=== PATIENT | male | born 1975 | race Hispanic/Latino ===

== ENCOUNTER 2016-10-22 14:23 | Emergency (ER) | payer OTHER ==
[~2016-10-22] VITALS: Ht 170.2 cm; Wt 117.0 kg
[2016-10-22 14:27] VITALS: BP 161/91; PULSE 67; RESP 16; O2SAT 98
[2016-10-22 14:37] VITALS: BP 158/83; PULSE 59; RESP 15; O2SAT 100
[2016-10-22 14:59] LABS: BASOPHILS % (AUTO) 0.1 % (0-3); EOSINOPHILS % (AUTO) 2.1 % (0-5); MONOCYTES % (AUTO) 8.5 % (4-12); NEUTROPHILS % (AUTO) 72.7 % (40-74); Platelet Count 186 bil/L (150-400)
--- NOTE | 2016-10-22 15:00 | ED.REPORT ---
HPI-General Illness Date of Service Oct 22, 2016 ED Provider: Dr. Rafy Santana The patient is a 41 year old male w/ a hx of HTN who presents to the ED due to an episode of sudden-onset, 9/10, mid-chest pain radiating upwards into the top part of his chest, onset yesterday at 1900. Pt describes the pain as "squeezing." The episode lasted 10-15 minutes and occurred while he was at work moving around. The pain resolved on its own with some deep breathing and relaxation; he finished his shift and returned home. Pt had another episode at 0200 this morning. He went outside to get some fresh air, drank some water, the pain abated and he went to bed. Doesn't seem to be worse w/ exertion. Pt is asymptomatic at the ED and has not had any pain today. He denies nausea, vomiting, abdominal pain, blood in stool, hematuria, diarrhea, or shortness of breath. Pt was sent to the ED today from due to elevated blood pressure. His father had a heart attack in his late 30's or 40's. Pt had 4 baby aspirin [employer]. Nursing Notes Stated Complaint: CHEST PAIN/ SENT FROM URGENT CARE Chief Complaint: Chest Pain Nursing Notes Reviewed: Yes Allergies: Coded Allergies: No Known Allergies (Unverified , 10/22/16) No Active Prescriptions or Reported Meds General Time Seen by MD: 14:59 Chief Complaint Chest pain Hx Obtained From: Patient Arrived By: Walk-in Sudden in Onset?: Yes Onset Occurred: Yesterday Symptom Duration: Since onset Location: : Chest Quality: Painful Severity: Current: Pain level 9 out of 10 Recent Healthcare: No recent doctor visit, No recent hospitalization Similar Sx Previous: No Past Medical History Past Medical History Reports: Hypertension Past Surgical History denies Family History Father from [place] in his late 30's Smoking History Current Every Day Smoker Social History Alcohol Use: Denies alcohol use Drug Use: THC Other Social History: Good social support, Lives in [facility] Ambulatory Status Independent Review of Systems Full Review of Systems Respiratory: Denies: Shortness of breath Cardiovascular: Reports: Chest pain GI: Denies: Abdominal pain, Bloody/tarry stool, Diarrhea, Hematochezia, Nausea , Vomiting Male: Denies Hematuria Complete sys rev & neg: except as marked. Physical Exam Nursing note and vitals reviewed. Constitutional: Well-developed, well-nourished. Not diaphoretic. Head: Normocephalic and atraumatic. Mouth/Throat: Oropharynx is clear and moist. No oropharyngeal exudate. Eyes: EOM are normal. Pupils are equal, round, and reactive to light. Neck: Supple, no tracheal deviation. Cardiovascular: Normal rate, regular rhythm. Equal and intact distal pulses throughout. Reproducible chest pain on exam. Pulmonary/Chest: Effort normal and breath sounds normal. No respiratory distress. Abdominal: Soft. No distension. Musculoskeletal: Range of motion grossly intact, moving all extremities. No peripheral edema or tenderness appreciated. Neurological: AOx3. Grossly nonfocal exam. Strength and sensation intact and equal to bilateral upper and lower extremities. Skin: Warm and dry, no rashes or pallor appreciated. Psychiatric: Appropriate mood and affect. Behavior appears normal. Vital Signs Vital Signs Date Time Temp Pulse Resp B/P Pulse Ox O2 Delivery O2 Flow Rate FiO2 10/22/16 16:50 37.0 54 16 147/87 97 Room Air 10/22/16 16:17 54 16 147/87 97 Room Air 10/22/16 14:37 59 15 158/83 100 Room Air 10/22/16 14:27 37.0 67 16 161/91 98 Room Air Initial VS: Reviewed Interpretation & Diagnostics Lab Results Interpretation Result Diagram: 10/22/16 1451 10/22/16 1451 Test 10/22/16 14:51 White Blood Count 14.5th/mm3 (3.8-10.1) Red Blood Count 5.31mil/mm3 (4.40-5.80) Hemoglobin 15.4g/dL (13.8-17.2) Hematocrit 46.2% (41.0-50.0) Mean Corpuscular Volume 87.0fL (81-100) Mean Corpuscular Hemoglobin 29.0pg (27.0-35.0) Mean Corpuscular Hemoglobin Concent 33.3% (32.0-37.0) Red Cell Distribution Width 13.5% (12.3-15.4) Platelet Count 186bil/L (150-400) Neutrophils (%) (Auto) 72.7% (40-74) Lymphocytes (%) (Auto) 16.4% (14-46) Monocytes (%) (Auto) 8.5% (4-12) Eosinophils (%) (Auto) 2.1% (0-5) Basophils (%) (Auto) 0.1% (0-3) Sodium Level 140mEq/L (134-144) Potassium Level 4.3mEq/L (3.5-5.2) Chloride Level 103mEq/L (97-108) Carbon Dioxide Level 24mmol/L (18-29) Blood Urea Nitrogen 16mg/dL (6-24) Creatinine 0.80mg/dL (0.76-1.27) Estimat Glomerular Filtration Rate 113mL/min (>59) Glucose Level 91mg/dL (60-99) Calcium Level 9.2mg/dL (8.5-10.1) Magnesium Level 2.2mg/dL (1.6-2.6) Total Bilirubin 0.4mg/dL (0.0-1.2) Aspartate Amino Transf (AST/SGOT) 15U/L (0-50) Alanine Aminotransferase (ALT/SGPT) 19U/L (0-44) Alkaline Phosphatase 86U/L (25-150) Troponin T < 0.010ug/L (0.0-0.011) Total Protein 6.9g/dL (6.4-8.4) Albumin 4.2g/dL (3.4-5.0) Hold Lucio Top Tube Received (Received) ECG Interpretation ECG Interpretation: 1 PVC Time: 14:44 Interpreted by: ED physician Normal ECG Interpretation: Normal sinus rhythm (rate 54), No acute ischemic changes X-Ray Chest Interpretation Chest Xray Interpretation: IMPRESSION: 1. No acute cardiopulmonary disease. Dictated by: Joselo Dominguez M.D. on 10/22/2016 at 15:15 Approved by: Joselo Dominguez M.D. on 10/22/2016 at 15:17 View: Portable Interpretation / Wet Read by: Interpret - Radiologist Re-Eval/Medical Decision Med Decision/Clinical Course In summary, 41-year-old male presenting to the ED for evaluation of chest pain since yesterday. Upon arrival here, the pain is completely resolved. He came over from urgent care because his blood pressure was elevated, however here in the ED, with no intervention, it has improved significantly with SBPs only in the 140s. Patient's EKG demonstrates sinus rhythm with one PVC, no acute ischemic changes. Troponin negative and last pain was greater than 12 hours ago. HEART score of 2. PERC negative. No symptoms that would suggest aortic dissection; no widened mediastinum, no chest pain tearing to the back, no pain at this time whatsoever. No evidence of pneumothorax on chest x-ray or exam. Afebrile, no recent illnesses; doubt myocarditis/pericarditis. He does have a mildly elevated white blood cell count, however no recent fevers, x-ray with no signs of pneumonia. Given the above, reasonable to discharge home with very careful return precautions, PCP follow-up in the next 1-2 days. Patient agreeable to the plan as stated, no further questions. I spent 10 minutes counseling the patient on smoking cessation. Time of Eval: 16:04 Re-Evaluation/Progress Note: Pt checked. Physical exam performed. Informed pt of normal chest x-ray and unremarkable labs. Discussed plan of treatment and follow up with primary care physician. Pt understands and agrees with plan. Counseled Regarding: Diagnosis, Lab results, Need for follow-up, When/why to return to ED Discharge & Departure Primary Impression: Chest pain Chest pain type: unspecified Qualified Code: R07.9 - Chest pain, unspecified Disposition: Home Discharge Condition All VS Reviewed: Yes Condition: Stable Patient Instructions: Chest Pain (ED) Additional Instructions: Thank you for entrusting us with your care today. Your chest x-ray and labs do not show any acute abnormalities. It is possible your symptoms were due to a nonemergent cause; however, with your history, it is important for you to follow up with a primary care physician in the next several days to discuss getting a stress test performed. Also, talk to your doctor about strategies for quitting smoking, this is extremely detrimental to your health. Return to the Emergency Department if you experience any new or worsening symptoms including increased chest pain, shortness of breath, or difficulty breathing, or if there's anything else of concern to you. Referrals: [facility] Lay Attestation Portion of this note were transcribed by Dinora Burr. I, Dr. Santana, personally performed the history, physical exam, and medical decision-making: I reviewed and confirmed the accuracy for the information in the transcribed note. Signed by: lya Lin, 10/22/16 1800 copies to: [facility] Rafy Santana MD Oct 22, 2016 15:00 Dinora Burr Oct 22, 2016 15:08 reviewed and confirmed the accuracy for the information in the transcribed note. Signed by: lay Lin, 10/22/16 1800 copies to: [facility] Rafy Santana MD Oct 22, 2016 15:00 Dinora Burr Oct 22, 2016 15:08 chest pain, shortness of breath, or difficulty breathing. Referrals: [facility] Lay Attestation Portion of this note were transcribed by Dinora Burr. I, Dr. Santana, personally performed the history, physical exam, and medical decision-making: I reviewed and confirmed the accuracy for the information in the transcribed note. Signed by: lay Lin, 10/22/16 1800 copies to: [facility] Rafy Alvarado MD Oct 22, 2016 15:00 Dinora Burr Oct 22, 2016 15:08
--- NOTE | 2016-10-22 15:19 | DRSVH ---
PROCEDURE: X-RAY CHEST ONE VIEW, PORTABLE ([id number]) INDICATIONS: Chest pain TECHNIQUE: One view of the chest was acquired. COMPARISON: [facility], CR, CHEST 2VW, 06/15/2006, 15:35. FINDINGS: Surgical changes and devices: None. Lungs and pleura: No pleural effusions or pneumothorax. Lungs are clear. Mediastinum: Mediastinal contours appear normal. Heart size is normal. Bones and chest wall: No suspicious bony lesions. Overlying soft tissues appear unremarkable. IMPRESSION: 1. No acute cardiopulmonary disease. Dictated by: Joselo Dominguez M.D. on 10/22/2016 at 15:15 Approved by: Joselo Dominguez M.D. on 10/22/2016 at 15:17
[2016-10-22 15:22] LABS: TROPONIN T < 0.010 ug/L (0.0-0.011)
[2016-10-22 15:28] LABS: Magnesium 2.2 mg/dL (1.6-2.6)
[2016-10-22 16:17] VITALS: BP 147/87; PULSE 54; RESP 16; O2SAT 97
[2016-10-22 16:50] VITALS: BP 147/87; PULSE 54; RESP 16; O2SAT 97
== END 2016-10-22 16:55 | disposition home or self-care (01) ==
LOC: SED 14:23
DX: R07.9 Chest pain, unspecified (principal); I10 Essential (primary) hypertension; F17.200 Nicotine dependence, unspecified, uncomplicated